=== PATIENT | female | born 1975 | race Caucasian/White ===

== ENCOUNTER 2017-06-17 19:17 | Emergency (ER) | payer MEDICARE ==
[~2017-06-17] VITALS: Ht 165.1 cm; Wt 59.1 kg
[~2017-06-17 19:17] MED LIST: FLUO20CA25 PO; HYDR50CA3 PO; LEVO25TA5 PO; LIT300 PO; OLAN5TAB PO; PREN1TAB25 PO
[2017-06-17 19:22] VITALS: BP 118/81; PULSE 66; RESP 16; O2SAT 97
--- NOTE | 2017-06-17 21:07 | ED.REPORT ---
HPI-Overdose/Alcohol Toxicity Date of Service Jun 17, 2017 ED Provider: Tal Shanks MD Pt is a 42 year old female with a history of DM, anxiety, suicidal ideations, depression, alcohol abuse, and bipolar disorder who presents to the ED requesting a medical evaluation for detox. Pt reports that she typically has 6 drinks a day. and that she tends to have suicidal ideation and depression when drinking. She denies having active suicidal ideation, depression, or self-harm. Per pt, she called Crisis center this morning, but she is unsure if they have a bed available for her. Her last drink was 1 hour prior to arrival. Nursing Notes Stated Complaint: DETOX Chief Complaint: Substance Abuse Nursing Notes Reviewed: Yes ([facility] not reconciled) Allergies: Coded Allergies: No Known Allergies (Verified , 06/17/17) Scheduled Acamprosate (Acamprosate) 333 Mg Tablet.dr 666 MG PO TID Acamprosate (Acamprosate) 333 Mg Tablet.dr 666 MG PO TID Divalproex ER (Divalproex ER) 250 Mg Tab.er.24h 250 MG PO TID Divalproex ER (Divalproex ER) 250 Mg Tab.er.24h 250 MG PO TID *DAILY DOSING ONLY* Swallowed whole without chewing to avoid local irritation of the mouth and throat. Levothyroxine (Levothyroxine) 75 Mcg Tablet 75 MCG PO DAILY Levothyroxine (Levothyroxine) 75 Mcg Tablet 75 MCG PO DAILY Olanzapine (Olanzapine) 10 Mg Tablet 10 MG PO DAILY Olanzapine (Olanzapine) 20 Mg Tablet 20 MG PO QPM Olanzapine (Olanzapine) 10 Mg Tablet 10 MG PO DAILY 10mg in AM, then take 20mg each evening Trazodone (Trazodone) 50 Mg Tablet 50 MG PO HS Trazodone (Trazodone) 50 Mg Tablet 50 MG PO HS Venlafaxine ER (Venlafaxine ER) 75 Mg Cap.er.24h 75 MG PO QAM Venlafaxine ER (Venlafaxine ER) 75 Mg Tab.er.24 75 MG PO DAILY General Time Seen by Provider: 21:00 Chief Complaint Other (Detox) Hx Obtained From: Patient Arrived By: Walk-in Onset Occurred: Onset unknown Symptom Duration: Since onset Severity: Current: No pain currently Severity: Maximum: No pain Recent Healthcare: No recent doctor visit, No recent hospitalization Similar Sx Previous: Yes Past Medical History Past Medical History Notes: Last admission August 2016 for depression with SI following polydrug overdose Past Medical History Hx of bulimia nervoas Anxiety disorder Bipolar disorder Suicidal ideations Polysubstance abuse Reports: Diabetes mellitus Reports: Depression Past Surgical History None reported Family History Sister has history of paranoid schizophrenia Smoking History Never Smoker Social History Alcohol Use: In recovery Drug Use: Denies drug use, THC Other Social History: Good social support, Lives with children, Local resident Occupation [place] with Mom [facility] [place] on her property Ambulatory Status Independent Review of Systems Denies self-harm Neurologic: Denies: Shaking Psychiatric: Denies: Depression, Suicidal ideation Complete sys rev & neg: except as marked. Physical Exam Initial Vital Signs Vital Signs (First) Date Time Temp Pulse Resp B/P Pulse Ox O2 Delivery O2 Flow Rate FiO2 06/17/17 19:22 36.4 66 16 118/81 97 Room Air Initial VS: Reviewed, Vital signs normal Head / Eyes: Atraumatic, Normocephalic Neck: Supple, Full range of motion Extremities: Vascular intact, Neuro intact Skin: Warm, Dry, No cyanosis General/Constitutional: Awake, Alert Smells of alcohol. No signs of withdrawal. Respiratory / Chest: Atraumatic, Breath sounds NL, Breath sounds = bilat Cardiovascular: Heart rate NL, Regular rhythm, Heart sounds NL Abdomen: Atraumatic, Soft, Non-tender Neurologic: Oriented X3, Speech NL Speech is not slurred. PSYCHIATRIC: She reports a history of suicidal dieation, but she is not actively suicidal. She seems to have adequate insight and thoughts. Interpretation & Diagnostics Lab Results Interpretation Test 06/17/17 21:41 Hold Urine Received (Received) Re-Eval/Medical Decision Med Decision/Clinical Course This is a 42-year-old female presents requesting detox from alcohol. She has a prior history of significant alcohol abuse, but of course she can say words for some time in recent months. However started drinking again yesterday,'s brought in by the sponsor. He denies any other coingestions or additional substances of abuse. She does have a history of depression, and even suicidal ideation-but denies suicidal ideation at present. Eyes any recent attempts, but had a significant polydrug overdose last year. The patient is clinically mildly intoxicated although not slurred speech or profound ataxia in the department. She was has a normal exam. Given she has been sober for some time before just starting drinking, her withdrawal risk is quite low. She was seen by the SIGNS SALES REPRESENTATIVE and has been accepted at crisis for detox. Detox is requested the standard Ativan taper which is being provided at their request. Source of Hx: Old records Re-Evaluation/Progress : Time of Eval: 22:44 Re-Evaluation/Progress Note: Pt rechecked. Informed pt of plan for discharge. Pt understands and agrees with plan for discharge. F/U instructions and RTER warnings given. All questions addressed. Consultation : Call Returned at: 22:44 Tailer Out: Agrees with eval, Agrees with plan Note: Consulted with SIGNS SALES REPRESENTATIVE. Reports pt will be going to crisis at 03:00 tomorrow and would need a taper. Differential Diagnosis: Positive: Alcohol abuse, Negative: Bipolar disorder, Conversion disorder, Overdose, accidental, Overdose, acetominophen, Schizophrenia Counseled Regarding: Diagnosis, Need for follow-up, When/why to return to ED Discharge & Departure Impression: Primary Impression: Alcohol abuse Additional Impression: Alcohol intoxication Complication of substance-induced condition: uncomplicated Qualified Code: F10.120 - Alcohol abuse with intoxication, uncomplicated Disposition: Home Discharge Condition All VS Reviewed: Yes Condition: Stable Additional Instructions: 1. Go directly to [facility]. 2. A taper of lorazepam is being provided. 3. Continue your regular medications. 4. If you need a primary care provider, follow up with Dr. Austin. Referrals: Harriet Austin MD [facility] Scribe Attestation Portions of this note were transcribed by Emilie Turner. I, Dr. Shanks personally performed the history, physical exam and medical decision-making; I reviewed and confirmed the accuracy of the information in the transcribed note. Signed by: Scott Gross, 06/17/17. copies to: Harriet Austin MD ; [facility] Tal Shanks MD Jun 17, 2017 21:07 Emilie Johnson Jun 17, 2017 21:17
[2017-06-17] MEDS ORDERED: VENL75CA95 PO (21:15)
[2017-06-17] MEDS ORDERED: ACAM333T7 PO ×2 (21:15→21:21)
[2017-06-17] MEDS ORDERED: LEVO75TA4 PO ×2 (21:15→21:21)
[2017-06-17] MEDS ORDERED: OLAN20TA16 PO (21:15)
[2017-06-17] MEDS ORDERED: TRAZ-115 PO ×2 (21:15→21:21)
[2017-06-17] MEDS ORDERED: DIVA250T12 PO ×2 (21:15→21:21)
[2017-06-17] MEDS ORDERED: OLAN10TA19 PO ×2 (21:15→21:21)
[2017-06-17] MEDS ORDERED: VENL75TA87 PO (21:21)
[2017-06-17] MEDS ORDERED: _LORazepam 2 MG Tablet PO SCH (22:45)
[2017-06-18 02:53] VITALS: BP 95/55; PULSE 67; RESP 16; O2SAT 99
== END 2017-06-18 02:54 | disposition home or self-care (01) ==
LOC: SED 19:17
DX: F10.120 Alcohol abuse with intoxication, uncomplicated (principal); E11.9 Type 2 diabetes mellitus without complications; F41.9 Anxiety disorder, unspecified; F32.9 Major depressive disorder, single episode, unspecified; F31.9 Bipolar disorder, unspecified

== ENCOUNTER 2017-06-28 22:04 | Emergency (ER) | payer MEDICARE ==
[~2017-06-28] VITALS: Ht 160 cm; Wt 59.1 kg
[~2017-06-28 22:04] MED LIST changes: +ACAM333T7 PO; +DIVA250T12 PO; -FLUO20CA25 PO; -HYDR50CA3 PO; -LEVO25TA5 PO; +LEVO75TA4 PO; -LIT300 PO; +OLAN10TA19 PO; +OLAN20TA16 PO; -OLAN5TAB PO; -PREN1TAB25 PO; +TRAZ-115 PO; +VENL75CA95 PO; +VENL75TA87 PO
--- NOTE | 2017-06-28 22:23 | ED.REPORT ---
HPI-Trauma Minor / Fall Date of Service Jun 28, 2017 ED Provider: Faizan Perales MD The pt is a 42 y/o female with a hx of DM, bipolar disorder, anxiety, and polysubstance use who presents to the ED via EMS due to chin laceration after she fell off the top bunk of the bed at [facility], just prior to arrival. She did not lose consciousness upon falling. Associated sx include left big toe pain and abrasion, and confusion. She had been drinking and accidently rolled off the bed. She denies syncope and abdominal pain. Nursing Notes Stated Complaint: FALL OFF BUNKBED, FACIAL INJURY Chief Complaint: Head, Face, Neck Trauma Nursing Notes Reviewed: Yes Allergies: Coded Allergies: No Known Allergies (Verified , 06/17/17) Scheduled Acamprosate (Acamprosate) 333 Mg Tablet.dr 666 MG PO TID Acamprosate (Acamprosate) 333 Mg Tablet.dr 666 MG PO TID Divalproex ER (Divalproex ER) 250 Mg Tab.er.24h 250 MG PO TID Divalproex ER (Divalproex ER) 250 Mg Tab.er.24h 250 MG PO TID *DAILY DOSING ONLY* Swallowed whole without chewing to avoid local irritation of the mouth and throat. Levothyroxine (Levothyroxine) 75 Mcg Tablet 75 MCG PO DAILY Levothyroxine (Levothyroxine) 75 Mcg Tablet 75 MCG PO DAILY Olanzapine (Olanzapine) 10 Mg Tablet 10 MG PO DAILY Olanzapine (Olanzapine) 20 Mg Tablet 20 MG PO QPM Olanzapine (Olanzapine) 10 Mg Tablet 10 MG PO DAILY 10mg in AM, then take 20mg each evening Trazodone (Trazodone) 50 Mg Tablet 50 MG PO HS Trazodone (Trazodone) 50 Mg Tablet 50 MG PO HS Venlafaxine ER (Venlafaxine ER) 75 Mg Cap.er.24h 75 MG PO QAM Venlafaxine ER (Venlafaxine ER) 75 Mg Tab.er.24 75 MG PO DAILY General Time Seen by MD: 22:21 Chief Complaint Laceration (chin) Hx Obtained From: Patient Arrived By: Ambulance Onset Occurred: Just prior to arrival Context of Onset: EtOH use Symptom Duration: Since onset Caused by: Accidental Location: Foot right (big toe) Quality: Painful Severity: Current: Mild Severity: Maximum: Mild Recent Healthcare: No recent doctor visit Past Medical History Past Medical History Notes: Last admission August 2016 for depression with SI following polydrug overdose Past Medical History Hx of bulimia nervoas Anxiety disorder Bipolar disorder Suicidal ideations Polysubstance abuse Reports: Diabetes mellitus Reports: Depression Past Surgical History None reported Family History Sister has history of paranoid schizophrenia Smoking History Never Smoker Social History Alcohol Use: In recovery Drug Use: Denies drug use, THC Other Social History: Good social support, Lives with children, Local resident Ambulatory Status Independent Review of Systems Musculoskeletal: Reports: Extremity pain (left big toe pain) Neurologic: Reports: Confusion, Denies: Change LOC, Syncope Complete sys rev & neg: except as marked. GI: Denies: Abdominal pain Physical Exam Initial Vital Signs Vital Signs (First) Date Time Temp Pulse Resp B/P Pulse Ox O2 Delivery O2 Flow Rate FiO2 06/28/17 22:40 36.5 66 14 92/59 95 Room Air Initial VS: Reviewed, Vital signs abnormal Respiratory: Breath sounds normal, Clear to auscultation, No respiratory distress Cardiovascular: Regular rate & rhythm, Heart sounds normal, Intact distal pulses Abdomen / GI: Soft, Non-tender, No guarding, No rebound, No distention Extremities: Vascular intact, Neuro intact, No swelling, No tenderness Skin: Warm, Dry, No cyanosis Neurologic: Alert, Oriented, Nonfocal General/Constitutional: Awake, Alert, Cooperative Appearance / Presentation: Positive: Intoxicated Neck: Atraumatic, Supple, Full range of motion Head / Eyes: Normocephalic Superficial 1cm laceration along the central madan border of the lower lip. Face symmetric and non tender. Blood shot eyes Neurologic: Oriented X3, No motor deficits, No sensory deficits Speech: Positive: Slurred Interpretation & Diagnostics CT Maxillofacial No CT evidence of fracture. Signed by Dr. Dima Patel 06/28/17 23:18 Lab Results Interpretation Result Diagram: 06/28/17221806/28/172218 Test 06/28/17 22:19 06/28/17 22:39 06/28/17 22:58 White Blood Count 8.4th/mm3 (3.8-10.1) Red Blood Count 4.28mil/mm3 (3.90-5.20) Hemoglobin 13.7g/dL (12.0-15.6) Hematocrit 40.5% (35.0-46.0) Mean Corpuscular Volume 94.6fL (81-100) Mean Corpuscular Hemoglobin 32.0pg (27.0-35.0) Mean Corpuscular Hemoglobin Concent 33.8% (32.0-37.0) Red Cell Distribution Width 12.3% (12.3-15.4) Platelet Count 320bil/L (150-400) Hold Purple Top Tube Received (Received) Hold Blue Top Tube Received (Received) Sodium Level 141mEq/L (134-144) Potassium Level 3.7mEq/L (3.5-5.2) Chloride Level 104mEq/L (97-108) Carbon Dioxide Level 20mmol/L (18-29) Blood Urea Nitrogen 11mg/dL (6-24) Creatinine 0.71mg/dL (0.57-1.00) Estimat Glomerular Filtration Rate 129mL/min (>59) Glucose Level 105mg/dL (60-99) Calcium Level 8.8mg/dL (8.5-10.1) Total Bilirubin 0.2mg/dL (0.0-1.2) Aspartate Amino Transf (AST/SGOT) 23U/L (0-50) Alanine Aminotransferase (ALT/SGPT) 10U/L (0-32) Alkaline Phosphatase 44U/L (25-150) Total Protein 7.3g/dL (6.4-8.4) Albumin 4.3g/dL (3.4-5.0) Hold [place] Top Tube Received (Received) Alcohols 304mg/dL (0-10) Hold Tolbert Top Tube Received (Received) Hold Urine Received (Received) Lab values outside NL range: no clinical significance. ECG Interpretation ECG Interpretation: Normal sinuns rhythm. Rate 68. Time: 23:16 Interpreted by: ED physician X-Ray Interpretation Xray Interpretation: No fracture X-Ray Ordered: Foot right Interpretation / Wet Read by: Wet read ED physician CT Head Interpretation No CT evidence of hemorrhage, mass or acute infarct. Signed by Dr. Dima Patel 06/28/17 23:09 Study: Head CT w contrast Interpretation / Wet Read by: Interpret - Radiologist CT C-Spine Interpretation No CT evidence of fracture or dislocation. Signed my Dr. Dima Patel 06/28/17 23:10 Study type: CT no contrast Interpretation / Wet Read by: Interpret - Radiologist Re-Eval/Medical Decision Med Decision/Clinical Course 42-year-old female who was intoxicated at [facility] and fell out of the bunk bed. She sustained head and face trauma. CT scan of her head face and neck were all negative. Her alcohol level was over 300. She sobered here in the emergency room and now will be transferred to [facility] with an Ativan prepack for withdrawal management. Source of Hx: Old records Re-Evaluation/Progress : Time of Eval: 05:46 Re-Evaluation/Progress Note: Rechecked pt. She feels better. The pt does not want to go back to [facility]. She'd rather go to [facility]. Discussed lab results, imaging results, diagnosis and plan to discharge. Pt understands and agrees with the plan. F/U instruction and RTER warning given. All questions addressed. Counseled Regarding: Diagnosis, Lab results, Need for follow-up, When/why to return to ED Discharge & Departure Impression: Primary Impression: Fall Encounter type: initial encounter Qualified Code: W19.XXXA - Unspecified fall, initial encounter Additional Impression: Alcohol intoxication Complication of substance-induced condition: uncomplicated Qualified Code: F10.120 - Alcohol abuse with intoxication, uncomplicated Disposition: Home Discharge Condition All VS Reviewed: Yes Patient Instructions: Head Injury (ED) Additional Instructions: CT scans of your head, neck and face are all normal. Recommend no alcohol. Go directly to [facility]. Lorazepam taper included. Referrals: [facility] Scribe Attestation Portions of this note were transcribed by Tawanda Sams. I,, personally performed the history,physical exam and medical decision-making;I reviewed and confirmed the accuracy of the information in the transcribed note. Signed by Scott Ballard. 06/29/17 copies to: [facility] Faizan Perales MD Jun 28, 2017 22:22 Tawanda Sams Jun 28, 2017 22:58
[2017-06-28 22:26] LABS: Mean Corpuscular Volume 94.6 fL (81-100)
[2017-06-28 22:40] VITALS: BP 92/59; PULSE 66; RESP 14; O2SAT 95
[2017-06-29 05:00] VITALS: BP 103/64; PULSE 67; RESP 16; O2SAT 98
[2017-06-29] MEDS ORDERED: _LORazepam 2 MG Tablet PO SCH (05:50)
--- NOTE | 2017-06-29 08:05 | DRSVH ---
PROCEDURE: CT BRAIN WITHOUT CONTRAST ([id number]) INDICATIONS: fall from bunkbed TECHNIQUE: Noncontrast 4.5 mm thick angled axial sections acquired from the foramen magnum to the vertex, with c oronal reformats. COMPARISON: [facility], CT, CT BRAIN WO CON, 09/04/2016, 12:48. FINDINGS: Image quality: Excellent. CSF spaces: Basal cisterns are patent. No extra-axial fluid collections. Ventricles are normal in size and shape. Brain: No midline shift. No intracranial masses or hemorrhage. Traylor-white matter interface is norm al. Skull and face: Calvarium and visualized facial bones are intact, without suspicious lesions. Sinuses: Visualized sinuses and mastoids are clear. IMPRESSION: 1. No acute intracranial process. Dictated by: Catalina Moraes M.D. on 06/29/2017 at 8:03 Approved by: Catalina Moraes M.D. on 06/29/2017 at 8:04
--- NOTE | 2017-06-29 08:07 | DRSVH ---
PROCEDURE: CT CERVICAL SPINE WITHOUT CONTRAST ([id number]) INDICATIONS: fall from bunkbed TECHNIQUE: Noncontrast 3 mm thick sections acquired from the skull base to the T4 level. Sagittal and coronal r eformats were then constructed. For radiation dose reduction, the following was used: automated exp osure control, adjustment of mA and/or kV according to patient size. COMPARISON: None. FINDINGS: Image quality: Excellent. Bones: No fractures or dislocations. Visualized superior ribs are intact. There is straightening o f normal cervical curvature. There is trace anterolisthesis of C2 on C3, C3 on C4. Minimal multilevel disc height loss is present. Soft tissues: Prevertebral soft tissues are normal in thickness. No paravertebral hematomas. No ap ical pneumothoraces. IMPRESSION: Cervical straightening without visualized fracture. Dictated by: Catalina Moraes M.D. on 06/29/2017 at 8:04 Approved by: Catalina Moraes M.D. on 06/29/2017 at 8:05
--- NOTE | 2017-06-29 08:09 | DRSVH ---
PROCEDURE: CT FACE WITHOUT CONTRAST ([id number]) INDICATIONS: fall from bunkbed TECHNIQUE: Noncontrast 1.5 mm thick axial images acquired from the mandible through the frontal sinuses, with co momo and sagittal reformatting. For radiation dose reduction, the following was used: automated ex posure control. COMPARISON: None. FINDINGS: Image quality: Excellent. Bones and teeth: Orbital cruz are intact. Sinus cruz show no fracture or deformity. Nasal bones and septum are intact. Visualized portions of the mandible demonstrate no fractures or subluxation. Zygomatic arches are intact. Pterygoid plates are intact. Visualized portions of the skull base an d auditory canals are intact. Sinuses: Paranasal sinuses demonstrate trace maxillary and ethmoid mucosal thickening. Small right m axillary mucous retention cyst versus polyp is noted. Mastoid air cells are aerated. Soft tissues: No edema, masses, or fluid collections. No enlarged lymph nodes. No soft tissue lace rations or debris. Vascular: Visualized vascular structures appear normal in the absence of contrast. Bony vascular fo ramina and canals are intact. IMPRESSION: 1. No visualized fractures. 2. Minimal maxillary and ethmoid mucosal thickening with right maxillary mucous retention cyst versus polyp is noted. Dictated by: Catalina Moares M.D. on 06/29/2017 at 8:06 Approved by: Catalina Moraes M.D. on 06/29/2017 at 8:08
--- NOTE | 2017-06-29 08:47 | DRSVH ---
PROCEDURE: X-RAY TOESS, TWO VIEWS INDICATIONS: fall with abrasion, pain TECHNIQUE: 3 views of the 1st toe(s) acquired. COMPARISON: None. FINDINGS: Bones: Vague linear lucency traverses the distal aspect of the proximal phalanx of the 1st digit, wit h articular surface extension to the interphalangeal joint. No suspicious bony lesions. Soft tissues: No suspicious soft tissue densities. IMPRESSION: Possible minimally displaced fracture of the 1st digit. Findings discussed with Dr. Laura quiroz on 06.29.17 at 08:45. Dictated by: Ravinder Perales M.D. on 06/29/2017 at 8:42 Approved by: Ravinder Perales M.D. on 06/29/2017 at 8:45
== END 2017-06-29 08:40 | disposition home or self-care (01) ==
LOC: EDBD 22:04 → EDUNIT# 22:04 → SED 22:04
DX: S01.81XA Laceration without foreign body of other part of head, initial encounter (principal); W06.XXXA Fall from bed, initial encounter; Y92.092 Bedroom in other non-institutional residence as the place of occurrence of the external cause; Y93.89 Activity, other specified; Y99.8 Other external cause status; F10.120 Alcohol abuse with intoxication, uncomplicated; E11.9 Type 2 diabetes mellitus without complications; F41.8 Other specified anxiety disorders
CPT/HCPCS: 36415; 70450; 70486; 72125; 73660; 80053; 81002; 81025; 82075; 85027; 93005; 99285; G0480

== ENCOUNTER 2017-06-29 12:47 | Emergency (ER) | payer MEDICARE ==
[~2017-06-29] VITALS: Ht 165.1 cm; Wt 56.8 kg
[2017-06-29 12:49] VITALS: BP 110/82; PULSE 90; RESP 18; O2SAT 100
--- NOTE | 2017-06-29 12:58 | ED.REPORT ---
HPI-General Illness Date of Service Jun 29, 2017 ED Provider: Raimundo Sanders MD Pt is a 42 year old female with a history of DM, bipolar disorder, anxiety, and polysubstance abuse who returned to the ED s/p getting a call from radiology that she fractured her proximal phalanx of the 1st metatarsal. Pain is constant , mild in severity, located around her right great toe and not radiating. Worse with walking and movement. She presented to the ED earlier this morning after falling off her bed but got discharged before radiology noticed the fracture. She denies numbness/tingling, focal weakness, loss of consciousness, neck pain, back pain, chest pain, SOB, headache, vision changes, or any other symptoms. Nursing Notes Stated Complaint: FOOT RESULTS/WAS HERE EARLIER Chief Complaint: Extremity Trauma Nursing Notes Reviewed: Yes Allergies: Coded Allergies: No Known Allergies (Verified , 06/17/17) Scheduled Acamprosate (Acamprosate) 333 Mg Tablet.dr 666 MG PO TID Acamprosate (Acamprosate) 333 Mg Tablet.dr 666 MG PO TID Divalproex ER (Divalproex ER) 250 Mg Tab.er.24h 250 MG PO TID Divalproex ER (Divalproex ER) 250 Mg Tab.er.24h 250 MG PO TID *DAILY DOSING ONLY* Swallowed whole without chewing to avoid local irritation of the mouth and throat. Levothyroxine (Levothyroxine) 75 Mcg Tablet 75 MCG PO DAILY Levothyroxine (Levothyroxine) 75 Mcg Tablet 75 MCG PO DAILY Olanzapine (Olanzapine) 10 Mg Tablet 10 MG PO DAILY Olanzapine (Olanzapine) 20 Mg Tablet 20 MG PO QPM Olanzapine (Olanzapine) 10 Mg Tablet 10 MG PO DAILY 10mg in AM, then take 20mg each evening Trazodone (Trazodone) 50 Mg Tablet 50 MG PO HS Trazodone (Trazodone) 50 Mg Tablet 50 MG PO HS Venlafaxine ER (Venlafaxine ER) 75 Mg Cap.er.24h 75 MG PO QAM Venlafaxine ER (Venlafaxine ER) 75 Mg Tab.er.24 75 MG PO DAILY General Time Seen by MD: 12:57 Chief Complaint Other (Foot pain ) Hx Obtained From: Patient Arrived By: Walk-in Sudden in Onset?: No Onset Occurred: 9 - 12 hours ago Symptom Duration: Constant Caused by: Fall on ground Location: : Foot right Quality: Painful Severity: Current: Mild Severity: Maximum: Moderate Pertinent Negative: Pt denies other symptoms Context Related History: Reports Diabetes mellitus Recent Healthcare: Recent doctor visit Similar Sx Previous: Yes Past Medical History Past Medical History Notes: Last admission August 2016 for depression with SI following polydrug overdose Past Medical History Hx of bulimia nervoas Anxiety disorder Bipolar disorder Suicidal ideations Polysubstance abuse mental health hospitalizations Reports: Diabetes mellitus Reports: Depression Past Surgical History None reported Family History Sister has history of paranoid schizophrenia Smoking History Never Smoker Social History Alcohol Use: In recovery Drug Use: Denies drug use, THC Other Social History: Good social support, Lives with children, Local resident Ambulatory Status Independent Review of Systems Full Review of Systems Respiratory: Denies: Shortness of breath Cardiovascular: Denies: Chest pain Musculoskeletal: Reports: Extremity pain (Right foot ), Denies: Back pain, Neck pain Neurologic: Denies: Change LOC, Focal weakness, Headache, Numbness, Vision change Complete sys rev & neg: except as marked. Physical Exam General: Well appearing, no acute distress HEENT: mucous membranes moist Pulm: Speaking comfortably with unlabored respirations, no respiratory distress Card: Regular rate, good peripheral perfusion Abd: Soft, nontender, nondistended Skin: Warm and dry, no rashes or pallor appreciated Psych: Appropriate mood and affect. Behavior appears normal. Neuro: AOx3, strength and sensation to light touch grossly intact throughout. Extremities: Moving all extremities, no peripheral edema appreciated. Intact sensation along toes of R foot. No gross deformity. Vital Signs Vital Signs Date Time Temp Pulse Resp B/P Pulse Ox O2 Delivery O2 Flow Rate FiO2 06/29/17 12:49 36.6 90 18 110/82 100 Room Air Initial VS: Reviewed Interpretation & Diagnostics X-Ray Interpretation Xray Interpretation: Toe X-Ray: IMPRESSION: Possible minimally displaced fracture of the 1st digit. Findings discussed with Dr. Sanders on 06.29.17 at 08:45. Dictated by: Ravinder Perales M.D. on 06/29/2017 at 8:42 Approved by: Ravinder Perales M.D. on 06/29/2017 at 8:45 Study Performed: X-ray taken on 06/28/17 during fiscal specialist. Read morning of 06/29/17. Interpretation / Wet Read by: Interpret - Radiologist Re-Eval/Medical Decision Med Decision/Clinical Course In summary, 42-year-old female presenting back to the emergency department after initially being seen last night after a fall, subsequently noted to have a proximal first metatarsal phalanx fracture. No new complaints right now. Neurovascularly intact. He is not placed in a boot, encouraged to minimize weightbearing on her toes, and her toes were shiraz taped. Neurovascularly intact after taping. Plan discharge home with careful outpatient follow-up, detailed return precautions. Patient agreeable to the plan as stated, no further questions. Source of Hx: Old records Time of Eval: 12:57 Patient Status: Condition improved Re-Evaluation/Progress Note: Discussed plan for discharge. Patient understands and agrees with plan. F/U instructions and RTER warnings given. All questions addressed at this time. Consultation : Referral / Consult Name: Eliot Gonzalez MD Consulted With: Orthopedic Call Returned at: 13:43 Parking Lot Manager: Will see in office Note: Discussed pt's case. will F/U in office next week. Counseled Regarding: Diagnosis, Lab results, Need for follow-up, When/why to return to ED Discharge & Departure Primary Impression: Fracture of first metatarsal bone Encounter type: initial encounter Fracture type: closed Physeal involvement : unspecified Laterality: right Qualified Code: S92.311A - Displaced fracture of first metatarsal bone, right foot, initial encounter for closed fracture Disposition: Home Discharge Condition All VS Reviewed: Yes Condition: Stable Patient Instructions: Toe Fracture (ED) Additional Instructions: Thank you for entrusting us with your care. Your x-ray shows a fracture in the proximal phalanx of your first metatarsal ( big toe). Follow-up with your primary care doctor on Monday. After meeting with you primary care doctor, you should follow-up with ortho in the next week. Please return to the emergency department if you experience numbness/tingling, worsening pain, or any other new or worsening symptoms. Referrals: [facility] (PCP) Scribe Attestation Portions of this note were transcribed by Nimo Mckay and Arnulfo Conroy. I, Dr. Sanders, personally performed the history, physical exam and medical decision-making; I reviewed and confirmed the accuracy of the information in the transcribed note. Signed by Nimo Chavez, 06/29/17. copies to: [facility] Raimundo Sanders MD Jun 29, 2017 12:58 Nimo Mckay Jun 29, 2017 14:06 ARNULFO CONROY Jun 29, 2017 14:41
== END 2017-06-29 14:41 | disposition home or self-care (01) ==
LOC: SED 12:47
DX: S92.311A Displaced fracture of first metatarsal bone, right foot, initial encounter for closed fracture (principal); W06.XXXA Fall from bed, initial encounter; Y93.89 Activity, other specified; Y92.89 Other specified places as the place of occurrence of the external cause; Y99.8 Other external cause status; F41.8 Other specified anxiety disorders; F31.9 Bipolar disorder, unspecified; E11.9 Type 2 diabetes mellitus without complications